=== PATIENT | male | born 1960 | race Caucasian/White ===

== ENCOUNTER 2016-11-28 15:49 | Emergency (ER) | payer OTHER | END 2016-11-28 17:22 | disposition other institution (70) | LOC: ED 15:49 | DX: Z02.89 Encounter for other administrative examinations (principal) ==

== ENCOUNTER 2016-11-28 15:49 | Emergency (ER) | payer MEDICARE ==
[~2016-11-28] VITALS: Ht 172.7 cm; Wt 74.8 kg
[2016-11-28 17:21] VITALS: BP 144/90
== END 2016-11-28 17:22 | disposition other institution (70) ==
LOC: ED 15:49
DX: L03.116 Cellulitis of left lower limb (principal); L03.115 Cellulitis of right lower limb; E11.9 Type 2 diabetes mellitus without complications; I10 Essential (primary) hypertension; F11.10 Opioid abuse, uncomplicated; F17.200 Nicotine dependence, unspecified, uncomplicated; Z88.1 Allergy status to other antibiotic agents
CPT/HCPCS: 82962; 90715